=== PATIENT | male | born 1950 | race Caucasian/White ===

== ENCOUNTER → 2020-04-27 | Outpatient (CLI) | payer OTHER | LOC: SJCVC 15:47 | PROVIDERS: ATTEND Internal Medicine Cardiovascular Disease | DX: R94.31 Abnormal electrocardiogram [ECG] [EKG] (principal); I11.9 Hypertensive heart disease without heart failure; E78.00 Pure hypercholesterolemia, unspecified; J44.9 Chronic obstructive pulmonary disease, unspecified; Z82.49 Family history of ischemic heart disease and other diseases of the circulatory system; Z87.891 Personal history of nicotine dependence; Z79.899 Other long term (current) drug therapy ==

== ENCOUNTER → 2020-05-02 | Outpatient (CLI) | payer OTHER | LOC: SJCVCIMAG 10:50 | PROVIDERS: ATTEND Internal Medicine Cardiovascular Disease | DX: I11.9 Hypertensive heart disease without heart failure (principal); I27.20 Pulmonary hypertension, unspecified; I49.3 Ventricular premature depolarization; J44.9 Chronic obstructive pulmonary disease, unspecified; E78.5 Hyperlipidemia, unspecified; Z79.899 Other long term (current) drug therapy; Z87.891 Personal history of nicotine dependence ==

== ENCOUNTER → 2020-05-25 | Outpatient (CLI) | payer OTHER | LOC: SJCVC 15:35 | PROVIDERS: ATTEND Internal Medicine Cardiovascular Disease | DX: I11.9 Hypertensive heart disease without heart failure (principal); R94.31 Abnormal electrocardiogram [ECG] [EKG]; E78.00 Pure hypercholesterolemia, unspecified; R60.9 Edema, unspecified; J44.9 Chronic obstructive pulmonary disease, unspecified; Z82.49 Family history of ischemic heart disease and other diseases of the circulatory system; Z79.899 Other long term (current) drug therapy; Z87.891 Personal history of nicotine dependence ==

== ENCOUNTER → 2020-06-16 | Outpatient (CLI) | payer OTHER | LOC: SJCVCIMAG 11:21 | PROVIDERS: ATTEND Internal Medicine Cardiovascular Disease | DX: R94.31 Abnormal electrocardiogram [ECG] [EKG] (principal); I11.9 Hypertensive heart disease without heart failure; M79.604 Pain in right leg; M79.605 Pain in left leg; M79.89 Other specified soft tissue disorders; J44.9 Chronic obstructive pulmonary disease, unspecified; C91.10 Chronic lymphocytic leukemia of B-cell type not having achieved remission; R53.83 Other fatigue; Z79.899 Other long term (current) drug therapy; Z87.891 Personal history of nicotine dependence ==

== ENCOUNTER 2020-07-22 09:55 | Inpatient (IN) | payer OTHER ==
[~2020-07-22] VITALS: Ht 172.7 cm; Wt 86.5 kg
--- NOTE | ~2020-07-22 | EMS ---
[address] [address] EMS Patient Care Report Name: IGNACIO NIELSEN Room #: 212-P ADM IN M.R.#: [id number] Admission: 07/23/20 Attend Phys: Andreina House MD Discharge: Date of : 50 Report #: [id number] THIS REPORT FOR: //name// Report Transmitted: 07/25/2020 09:33 EMS Care Summary [facility] Incident [id number] @ 07/22/2020 08:55 Incident Location [address] [place] [address] Patient IGNACIO NIELSEN Male, 69 Years 1950 Patient Address [address] [place] [address] Patient History Chronic Obstructive Pulmonary Disease (COPD),Hypertension (HTN), Patient Allergies No known allergies, Patient Medications Lisinopril, Anoro, Chief Complaint Swelling in legs Disposition Transported No Lights/[place] Dispatch Reason Breathing Problem Transported To [facility] Narrative Called for soda. Arrived to find one male pt alert to person place time and event, sitting in recliner. Pt reported soa on exertion that was worse for the last month, making it difficult to get to the bathroom. Pt also had edema in his legs no pitting for the same time period. Lung sounds clear. Pt transported [address] [address] EMS Patient Care Report Name: IGNACIO NIELSEN Room #: 212-P ADM [facility]#: [id number] Admission: 07/23/20 Attend Phys: Andreina House MD Discharge: Date of : 50 Report #: [id number] to [facility] per his request radio report en route. Vitals wnl nfp, no change in pt condition en route. Pt moved to hospital bed by ems, report to staff at bedside. Initial Vitals @09:21P: 93,BP: 122/75,SpO2: 81, @09:50P: 88,BP: 118/73,SpO2: 89, @09:05P: 95,BP: 113/79,GCS: 15,SpO2: 78, Impression Shortness of breath Timeline 08:52,Call Received 08:52,Psap Call 08:55,Dispatched 08:56,En Route 09:01,On Scene 09:02,At Patient 09:05,BP: 113/79 M,PULSE: 95,RR: R,SPO2: 78 Ox,ETCO2: ,BG: ,PAIN: ,GCS: 15, 09:21,BP: 122/75 M,PULSE: 93,RR: R,SPO2: 81 Ox,ETCO2: ,BG: ,PAIN: ,GCS: , 09:22,Depart Scene 09:50,BP: 118/73 M,PULSE: 88,RR: R,SPO2: 89 Ox,ETCO2: ,BG: ,PAIN: ,GCS: , 09:50,At Destination 10:20,Transfer Patient 10:47,Call Closed Disclaimer v1.1 Copyright 2020 [employer] This EMS Care Summary contains data elements from the applicable legal record (which may be displayed differently). It is designed to provide pertinent information for the following purposes: continuity of care, clinical quality, and state data reporting. The complete legal record is available to ED staff and administrators of the receiving hospital in [facility]'s Patient Tracker. All data is provided "as is."
[2020-07-22 09:55] VITALS: BP 114/78
[2020-07-22] MEDS ORDERED: LISINOPRIL10 MG PO (09:58)
[2020-07-22] MEDS ORDERED: ANORO ELLIPTA1 EACH (09:58)
[2020-07-22 10:15] LABS: HEMOGLOBIN 15.2 gm/dL (14.0-18.0)
[2020-07-22 10:17] LABS: HEMATOCRIT 51.8 % (42.0-52.0); MCH 22.4 pg (26.0-34.0); MCHC 29.4 g/dL (28.0-37.0); MCV 76.2 fL (80.0-100.0); PLATELET COUNT 302 thou/uL (150-400); RBC 6.79 mil/uL (4.50-6.00); RDW 20.2 % (10.5-14.5); WBC 39.5 thou/uL (4.0-11.0)
[2020-07-22 10:26] LABS: ANION GAP 3 mmol/L (7-16); BUN 32 mg/dL (7-18); CALCIUM 8.4 mg/dL (8.5-10.1); CHLORIDE 106 mmol/L (98-107); CO2 34 mmol/L (21-32); CREATININE 1.2 mg/dL (0.7-1.3); GLUCOSE 111 mg/dL (74-106); POTASSIUM 5.5 mmol/L (3.5-5.1); SODIUM 143 mmol/L (136-145)
[2020-07-22 10:33] LABS: TROPONIN-I <0.06 ng/mL (<0.06)
[2020-07-22 10:48] LABS: ABSOLUTE NEUTROPHILS 5.5 thou/uL (1.4-8.2); ANISOCYTOSIS 1+; ATYPICAL LYMPHS 76 %; NUCLEATED RBCS 1 /100WBC; PLATELET ESTIMATE NORMAL; POLYCHROMASIA SLIGHT
[2020-07-22 18:18] LABS: ANION GAP 4 mmol/L (7-16); BUN 30 mg/dL (7-18); CALCIUM 8.1 mg/dL (8.5-10.1); CHLORIDE 106 mmol/L (98-107); CO2 37 mmol/L (21-32); CREATININE 1.3 mg/dL (0.7-1.3); GLUCOSE 89 mg/dL (74-106); POTASSIUM 5.2 mmol/L (3.5-5.1); SODIUM 147 mmol/L (136-145)
[2020-07-22 18:28] LABS: TROPONIN-I <0.06 ng/mL (<0.06)
[2020-07-23] VITALS (7 sets, daily range): BP systolic 90–106; BP diastolic 50–64
[2020-07-23 06:36] LABS: URINE BILIRUBIN NEGATIVE (Negative); URINE BLOOD NEGATIVE (Negative); URINE CLARITY CLOUDY; URINE COLOR YELLOW; URINE GLUCOSE-RANDOM* NEGATIVE (Negative); URINE KETONES NEGATIVE (Negative); URINE LEUKOCYTES NEGATIVE (Negative); URINE NITRITE NEGATIVE (Negative); URINE PROTEIN (DIPSTICK) NEGATIVE (Negative); URINE UROBILINOGEN 0.2 E.U./dl (0.2-1.0)
[2020-07-23 08:51] LABS: HEMATOCRIT 52.5 % (42.0-52.0); HEMOGLOBIN 15.4 gm/dL (14.0-18.0); MCH 22.3 pg (26.0-34.0); MCHC 29.3 g/dL (28.0-37.0); PLATELET COUNT 298 thou/uL (150-400); RBC 6.91 mil/uL (4.50-6.00); RDW 20.4 % (10.5-14.5)
[2020-07-23 08:57] LABS: WBC 23.1 thou/uL (4.0-11.0)
[2020-07-23 09:08] LABS: ANION GAP 4 mmol/L (7-16); BUN 27 mg/dL (7-18); CHLORIDE 104 mmol/L (98-107); CO2 34 mmol/L (21-32); CREATININE 1.2 mg/dL (0.7-1.3); GLUCOSE 158 mg/dL (74-106); POTASSIUM 4.8 mmol/L (3.5-5.1); SODIUM 142 mmol/L (136-145); TROPONIN-I <0.06 ng/mL (<0.06)
[2020-07-23 09:12] LABS: ABSOLUTE NEUTROPHILS 3.7 thou/uL (1.4-8.2); ANISOCYTOSIS 2+; ATYPICAL LYMPHS 23 %; PLATELET ESTIMATE NORMAL; POLYCHROMASIA SLIGHT
[2020-07-23 09:18] LABS: ALBUMIN 3.5 g/dL (3.4-5.0); CALCIUM 8.7 mg/dL (8.5-10.1); CREATININE 1.3 mg/dL (0.7-1.3); POTASSIUM 4.6 mmol/L (3.5-5.1); TOTAL BILIRUBIN 0.7 mg/dL (0.2-1.0); TOTAL PROTEIN 6.2 g/dL (6.4-8.2)
--- NOTE | 2020-07-23 11:30 | NUR ---
PT ADMITTED TO ROOM 212, COVID NEGATIVE, C/O INCREASING SOA, LE EDEMA 3+, NO C/O PAIN, VSS, O2 AT 4L/NC DESATS EASILY WITH ACTIVITY, VOIDING PER URINAL. RECEIVED VERY LITTLE SLEEP AFTER ADMISSION FINISHED, IV INFUSING IN R AC, TOLLERATED AM MEAL TRAY, IV ANTIBIOTICS STARTED AND SECOND BAG OF FLUIDS, REPORT GIVEN TO NEXT SHIFT TO CON'T WITH PPOC.
--- NOTE | 2020-07-23 18:35 | NUR ---
ASSUMED CARE AT CHANGE OF SHIFT. PT ALERTX4, FROM HOME. 4L NASAL CANNULA, VOICED TO CARDIOLOGY HE HAS FELT AN INCREASE OF SOA OVER THE WEEK. BILAT LE EDEMA THAT ARE WRAPPED WITH CASSI WRAPS PER DR KEE. AB TOVA WITH BATHROOM PRIVLEDGES. DENIES PAIN. SCHEDULED MEDS GIVEN PER ORDERS. CALLS FOR ASSISTANCE.
[2020-07-24 03:54] LABS: MCV 74.5 fL (80.0-100.0)
[2020-07-24 03:56] LABS: HEMATOCRIT 45.6 % (42.0-52.0); HEMOGLOBIN 13.4 gm/dL (14.0-18.0); MCH 21.8 pg (26.0-34.0); MCHC 29.3 g/dL (28.0-37.0); PLATELET COUNT 285 thou/uL (150-400); RBC 6.12 mil/uL (4.50-6.00); RDW 20.1 % (10.5-14.5); WBC 26.1 thou/uL (4.0-11.0)
--- NOTE | 2020-07-24 05:30 | NUR ---
ASSUMED CARE OF THE PATIENT AT 1900; AOX4/UP AD TOVA TO TOILET; 4L N/C WITH O2 SATs 94-PERCENT AND ABOVE; NO C/O OF PAIN; SR ON THE MONITOR/ HR 60-80s; EDUCATED ON 1500 ML FLUID RESTRICTION AND DIET; CASSI WRAPS IN PLACE TO BL LE WITH EDEMA; PLAN IS FOR PATIENT TO D/C TO HOME TODAY OR TOMORROW; WILL CONTINUE TO MONITOR.
[2020-07-24 05:38] VITALS: BP 92/51
[2020-07-24 07:38] LABS: ABSOLUTE NEUTROPHILS 7.3 thou/uL (1.4-8.2); ATYPICAL LYMPHS 6 %; NUCLEATED RBCS 1 /100WBC
[2020-07-24 07:39] LABS: ANISOCYTOSIS 2+; HYPOCHROMASIA 2+
[2020-07-24 08:00] VITALS: BP 108/60
[2020-07-24 09:05] LABS: ANION GAP 10 mmol/L (7-16); BUN 27 mg/dL (7-18); CALCIUM 8.6 mg/dL (8.5-10.1); CHLORIDE 104 mmol/L (98-107); CO2 32 mmol/L (21-32); CREATININE 1.3 mg/dL (0.7-1.3); GLUCOSE 130 mg/dL (74-106); POTASSIUM 4.2 mmol/L (3.5-5.1); SODIUM 146 mmol/L (136-145)
[2020-07-24 09:07] LABS: APTT 26.8 Seconds (24.5-32.8); INR 1.1; PROTIME 11.5 Seconds (9.3-11.4)
[2020-07-24 09:14] LABS: TROPONIN-I <0.06 ng/mL (<0.06)
--- NOTE | 2020-07-24 10:37 | 2DMMODE ---
[facility] [place] [address] [place] [address] 2 D/M-MODE ECHOCARDIOGRAM Name: IGNACIO NIELSEN Room #: 212-P ADM IN M.R.#: [id number] Admission: 07/23/20 Attend Phys: Andreina House MD Discharge: Date of : 50 Report #: [id number] THIS REPORT FOR: cc: Thomas Pantoja Louis D. DO Santiago, Patrick MD [facility] ~ APPROVED REPORT Study performed: 07/24/2020 09:39:37 EXAM: Comprehensive 2D, Doppler, and color-flow Echocardiogram Patient Location: Bedside Room #: 212 Status: routine BSA: 1.98 HR: 86 bpm BP: 108/60 mmHg Rhythm: NSR Other Information Study Quality: Adequate Indications Congestive Heart Failure COPD Dyspnea Edema 2D Dimensions RVDd: 48.26 mm IVSd: 10.12 (7-11mm) LVOT Diam: 21.19 (18-24mm) LVDd: 46.01 mm PWd: 8.56 (7-11mm) Ascending Ao: 30.91 (22-36mm) LVDs: 28.13 (25-40mm) Aortic Root: 32.36 mm IVC: 28.00 mm Volumes Left Atrial Volume (Systole) Single Plane 4CH: 65.38 mL Single Plane 2CH: 66.55 mL LA ESV Index: 39.00 mL/m2 Aortic Valve AoV Peak Shreyas.: 1.46 m/s AO Peak Gr.: 8.57 mmHg LVOT Max P.57 mmHg [facility] [address] [place] [address] 2 D/M-MODE ECHOCARDIOGRAM Name: SABINESTACEYIGNACIO Room #: 212-P [facility] IN ..#: [id number] Admission: 07/23/20 Attend Phys: Andreina House, Discharge: Date of : 50 Report #: [id number] LVOT Max V: 1.18 m/s ANDRES Vmax: 2.84 cm2 Mitral Valve E/A Ratio: 1.2 MV Decel. Time: 163.65 ms MV E Max Shreyas.: 1.01 m/s MV A Shreyas.: 0.84 m/s MV PHT: 47.46 ms IVRT: 73.82 ms Pulmonary Valve PV Peak Shreyas.: 0.93 m/s PV Peak Gr.: 3.47 mmHg Pulmonary Vein P Vein S: 0.48 m/s P Vein A: 0.39 m/s P Vein D: 0.52 m/s P Vein A Dur.: 92.3 msec P Vein S/D Ratio: 0.92 Tricuspid Valve TR Peak Shreyas.: 2.83 m/s TR Peak Gr.: 32.12 mmHg PA Pressure: 42.00 mmHg Left Ventricle The left ventricle is normal size. There is normal LV segmental wall motion. There is normal left ventricular wall thickness. The left ventricular systolic function is normal. The left ventricular ejection fraction is within the normal range. LVEF is 55-60%. The left ventricular diastolic function is abnormal. Right Ventricle Right ventricle is moderately dilated. The right ventricular systolic function is normal. Atria Left atrium is dilated. Right atrium is dilated. Aortic Valve The aortic valve is normal in structure. No aortic regurgitation is present. There is no aortic valvular stenosis. Mitral Valve The mitral valve is normal in structure. Mild mitral regurgitation. No evidence of mitral valve stenosis. [facility] [place] [address] 2 D/M-MODE ECHOCARDIOGRAM Name: IGNACIO NIELSEN Yosi Room #: 212-P [facility] IN .R.#: [id number] Admission: 07/23/20 Attend Phys: Andreina House, Discharge: Date of : 50 Report #: [id number] Tricuspid Valve The tricuspid valve is normal in structure. There is trace tricuspid regurgitation. Estimated PAP 42 mmHg. There is moderate pulmonary hypertension. Pulmonic Valve The pulmonary valve is normal in structure. There is no pulmonic valvular regurgitation. Great Vessels The aortic root is normal in size. IVC is dilated and collapses <50% with inspiration. Pericardium There is no pericardial effusion. Pleural effusion is seen. <Conclusion> Normal left ventricle size/wall thickness Ejection fraction 60% Moderately dilated RV with normal systolic function Mild biatrial enlargement Normal aortic valve structure/function Mild mitral valve insufficiency Trace tricuspid valve insufficiency Pulmonary artery systolic pressure estimated 42 mmHg No pericardial effusion <ELECTRONICALLY SIGNED> By: Mani Bass MD, FACC 07/24/201035 35 35 Mani Bass MD, FACC /INF
[2020-07-24 12:04] LABS: CLARITY CLOUDY; COLOR DARK YELLOW; SOURCE RIGHT CHEST; TOTAL VOLUME 55 mL
[2020-07-24 13:32] LABS: BF NUCLEATED CELLS 4511 /mm3; BF RBC 6612 /mm3
[2020-07-24 14:44] LABS: BF MACROPHAGE 38 %; BF NEUTROPHILS 1 %
[2020-07-24 17:30] VITALS: BP 105/73
--- NOTE | 2020-07-24 20:17 | NUR ---
PT ALERT AND ORIENTED X4. ECHO AND US GUIDED THORACENTESIS DONE THIS AM. 500ML DRAINED AND SENT FOR ORDERED LABS. CHEST XRAY DONE FOLLOWING THORACENTESIS. PT'S AT BEDSIDE AND UPDATED. PT REQUESTING SLEEPING PILL TONIGHT. DR PONCE NOTIFIED. REPORT GIVEN TO SUPERVISOR DEHYDROGENATION RN.
[2020-07-24 20:30] VITALS: BP 104/64
[2020-07-25 05:03] LABS: CALCIUM 8.2 mg/dL (8.5-10.1); CREATININE 1.3 mg/dL (0.7-1.3); POTASSIUM 4.8 mmol/L (3.5-5.1)
[2020-07-25 05:05] LABS: HEMATOCRIT 44.1 % (42.0-52.0); HEMOGLOBIN 13.1 gm/dL (14.0-18.0); MCH 22.3 pg (26.0-34.0); MCHC 29.8 g/dL (28.0-37.0); MCV 74.9 fL (80.0-100.0); RBC 5.88 mil/uL (4.50-6.00); RDW 20.3 % (10.5-14.5); WBC 25.1 thou/uL (4.0-11.0)
[2020-07-25 05:19] VITALS: BP 100/63
--- NOTE | 2020-07-25 05:59 | NUR ---
ASSUMED CARE OF THE PATIENT AT 1900; AOX4; SR ON THE MONITOR WITH HR 60-80s; 4L N/C AND TOLERATING WELL; C/O OF PAIN AND SLEEPLESSNESS MANAGED WITH SOME SUCCESS; PLAN IS FOR PATIENT TO REMAIN FOR OBSERVATION AND CONSULT WITH HEM-ONC; WILL CONTINUE TO MONITOR.
[2020-07-25 09:51] VITALS: BP 106/58
[2020-07-25 12:42] VITALS: BP 94/58
[2020-07-25 16:41] VITALS: BP 104/67
[2020-07-25 19:42] VITALS: BP 99/54
[2020-07-26 04:22] VITALS: BP 111/66
[2020-07-26 06:12] LABS: HEMOGLOBIN 13.6 gm/dL (14.0-18.0); MCH 22.1 pg (26.0-34.0); MCHC 29.5 g/dL (28.0-37.0); MCV 74.9 fL (80.0-100.0); RBC 6.15 mil/uL (4.50-6.00); RDW 20.3 % (10.5-14.5)
[2020-07-26 06:51] LABS: CALCIUM 8.1 mg/dL (8.5-10.1); CREATININE 1.3 mg/dL (0.7-1.3)
--- NOTE | 2020-07-26 07:48 | NUR ---
PATIENT CARES WERE ASSUMED AT SHIFT CHANGE. PATIENT WAS ASSESSED AND MEDS WERE PASSED. PATIENT REQUESTED PAIN MEDS AND MEDS TO SLEEP ABOUTT 2215. PATIENT DID SLEEP THE MAJORITY OF THIS SHIFT. THE SHIFT WAS UNEVENTFUL FOR THIS PATIENT. THE BED WAS IN A LOW AND LOCKED POSITION.
[2020-07-26 07:57] VITALS: BP 114/55
[2020-07-26 09:08] LABS: HAV IgM AB (ANTI-HAV IgM) Negative (Negative); HEPATITIS B SURFACE AG Negative (Negative); HEPATITIS C VIRUS AB <0.1 (0.0-0.9)
[2020-07-26 11:01] VITALS: BP 106/74
--- NOTE | 2020-07-26 12:06 | HC ---
[facility] [place] [address] [place] [address] CONSULTATION Name: IGNACIO NIELSEN Room #: 212-P ADM IN M.R.#: [id number] Admission: 07/23/20 Attend Phys: Andreina House MD Discharge: Date of : 50 Report #: [id number] THIS REPORT FOR: cc: Thomas Pantoja Louis D. DO Barry, Joseph W. MD ~ DATE OF SERVICE: 07/25/2020 INFECTIOUS DISEASE CONSULTATION ATTENDING PHYSICIAN: Dr. House. REASON FOR EVALUATION: Question empyema. HISTORY OF SUBJECTIVE: Chart reviewed, the patient examined. This is a 69-year-old gentleman with chronic lymphocytic leukemia also apparently has underlying COPD been initiated on supplemental oxygen, although this has not been a chronic issue. He presented with complaints of progressive lower extremity swelling and weight gain with worsening dyspnea over the course of the last 6-8 weeks. Initial chest x-ray raised question of widespread bilateral non-consolidative infiltrates suggesting of pulmonary edema versus atypical infection. COVID testing was negative, underwent a CT showed moderate right pleural effusion and underwent thoracentesis. The fluid was evaluated and was found to have 4500 white cells, predominantly lymphocytes and macrophages only 1% neutrophils. On questioning, he denies any recent fevers or chills. Appetite has been somewhat diminished, although recently has improved. He did undergo diuresis and states he feels significantly better. He is empirically placed on ceftriaxone and azithromycin. Cultures in progress. ALLERGIES: STATINS. CURRENT MEDICATIONS: Include torsemide, hydrocodone, melatonin, methylprednisolone, aspirin, azithromycin, ceftriaxone, guaifenesin, famotidine, budesonide, ipratropium and albuterol inhaler, carvedilol, enoxaparin, nitroglycerin. PAST MEDICAL HISTORY: As described above, chronic lymphocytic leukemia, currently stable; COPD with borderline oxygen dependency, hypertension, previous tonsillectomy. SOCIAL HISTORY: Former smoker, occasional ethanol, no illicit drug use. FAMILY HISTORY: Noncontributory. REVIEW OF SYSTEMS: Otherwise, unremarkable 10-point review of systems. [address] [address] CONSULTATION Name: IGNACIO NIELSEN Room #: 212-P [facility] IN M.R.#: [id number] Admission: 07/23/20 Attend Phys: Andreina House MD Discharge: Date of : 50 Report #: [id number] PHYSICAL EXAMINATION: GENERAL: He is alert, cooperative, appropriate, some mild distress. Does have appears to be somewhat chronically ill and undernourished. VITAL SIGNS: Temperature 97, pulse 78, respirations 18, blood pressure 106/58. SKIN: Warm, dry, no rashes. HEENT: Normocephalic. Extraocular muscles intact. Does have nasal cannula in place. NECK: Supple. LUNGS: Diminished breath sounds. Few scattered crackles throughout. HEART: Regular. I do not appreciate a murmur. ABDOMEN: Mildly distended, soft, nontender. EXTREMITIES: Mild edema. GENITOURINARY AND RECTAL: Deferred. LABORATORY DATA: Pleural fluid culture was sterile thus far. Electrolytes: Sodium 143, potassium 4.8, chloride 105, bicarbonate is 34, anion gap of 4, BUN and creatinine 35/1.3, glucose of 128. CBC: White count 25.1, H and H 13.1 and 44.1, platelets of 269. Previous CBC showed predominance of lymphocytes. Sed rate of 4. Body fluid described as dark yellow, cloudy, 6600 red cells, 4500 white cells, 1 neutrophil, 60 lymphocytes, 38 macrophages. Imaging as noted above. Blood cultures sterile thus far. MRSA PCR was negative. Urinary antigen for Streptococcus and legionella were presumptive negative as well. Urinalysis unremarkable. ASSESSMENT: 1. Pleural fluid in the setting of underlying chronic obstructive pulmonary disease with hypoxemia. 2. Chronic lymphocytic leukemia. PLAN: We will plan to continue empiric therapy with antimicrobials at this point. I think the overall evidence would favor against an empyema, given the significant improvement, the lack of systemic illness in terms of fevers, chills. Given the fact that his predominant lymphocytes in the setting of chronic lymphocytic leukemia was suggestive of parapneumonic process. He remains somewhat tenuous. We will add incentive spirometry, increase his activity, optimize her nutritional status. <ELECTRONICALLY SIGNED> By: Shashank Cruz MD 07/26/20 1206 1151 1255 Shashank Cruz MD /nt
--- NOTE | 2020-07-26 13:01 | NUR ---
Met with patient who admits with CHF. Patient resides with in independent home. Independent with adls ship captain. Patient reports PCP Dr Longoria. Patient to dc home today. Patient not interested in home health care. he reports he can f/u with his phys outpatient. patient reports his phus office did arrange for home oxygen. He has only rec a few days. From [employer]. Plan to update oxygen company with sat/excercise. Patient usu on 3 liters at home. Plan home independently.
[2020-07-26] MEDS ORDERED: ADULT LOW DOSE81 MG PO (14:11)
[2020-07-26] MEDS ORDERED: CEFDINIR300 MG PO (14:11)
[2020-07-26] MEDS ORDERED: COREG6.25 MG PO (14:11)
[2020-07-26] MEDS ORDERED: TORSEMIDE20 MG PO (14:12)
[2020-07-26] MEDS ORDERED: PREDNISONE 10 M10 M1 PO (14:12)
[2020-07-26 14:37] VITALS: BP 106/74
--- NOTE | 2020-07-26 15:24 | NUR ---
ASSUMED CARE AT SHIFT CHANGE, ASSESSMENT DOCUMENTED, VSS AND AFEBRILE. BLE RWRAPPED WITH CASSI BANDS, AND DISCHARGE AND MEDICATION INSTRUCTIONS GIVEN. PATIENT DISCHARGED HOME.
[2020-07-26 17:38] VITALS: BP 106/74
[2020-07-28 10:38] LABS: SOURCE THORACENTESIS
== END 2020-07-26 15:26 | disposition home or self-care (01) | DRG 871 ==
LOC: ER 09:55 → EROBS 07-23 01:10 → 2N 07-23 01:10
PROVIDERS: Emergency Medicine; Hospitalist; Nurse Practitioner Adult Health; Specialist; ADMIT Internal Medicine; ATTEND Internal Medicine
PROC: 0W993ZZ Drainage of Right Pleural Cavity, Percutaneous Approach (ICD-10-PCS; principal; 2020-07-24)
DX: A41.9 Sepsis, unspecified organism (principal); I50.33 Acute on chronic diastolic (congestive) heart failure; J18.9 Pneumonia, unspecified organism; J44.1 Chronic obstructive pulmonary disease with (acute) exacerbation; E87.0 Hyperosmolality and hypernatremia; C91.10 Chronic lymphocytic leukemia of B-cell type not having achieved remission; J91.8 Pleural effusion in other conditions classified elsewhere; J44.0 Chronic obstructive pulmonary disease with (acute) lower respiratory infection; E87.5 Hyperkalemia; I27.20 Pulmonary hypertension, unspecified; G47.00 Insomnia, unspecified; I11.0 Hypertensive heart disease with heart failure; Z20.828 Contact with and (suspected) exposure to other viral communicable diseases; Z88.8 Allergy status to other drugs, medicaments and biological substances; Z87.891 Personal history of nicotine dependence; Z79.899 Other long term (current) drug therapy; Z79.82 Long term (current) use of aspirin; Z23 Encounter for immunization
CPT/HCPCS: 10081

== ENCOUNTER → 2020-08-09 | Outpatient (CLI) | payer OTHER ==
[~2020-08-09] MED LIST: ADULT LOW DOSE81 MG PO; ANORO ELLIPTA1 EACH; CEFDINIR300 MG PO; COREG6.25 MG PO; LISINOPRIL10 MG PO; PREDNISONE 10 M10 M1 PO; TORSEMIDE20 MG PO
== END ==
LOC: SJCVC 14:02
PROVIDERS: ATTEND Internal Medicine Cardiovascular Disease
DX: R94.31 Abnormal electrocardiogram [ECG] [EKG] (principal); I11.0 Hypertensive heart disease with heart failure; I50.32 Chronic diastolic (congestive) heart failure; I27.20 Pulmonary hypertension, unspecified; J44.9 Chronic obstructive pulmonary disease, unspecified; C91.10 Chronic lymphocytic leukemia of B-cell type not having achieved remission; E78.00 Pure hypercholesterolemia, unspecified; Z79.82 Long term (current) use of aspirin; Z79.899 Other long term (current) drug therapy; Z87.891 Personal history of nicotine dependence

== ENCOUNTER → 2020-11-07 | Outpatient (CLI) | payer OTHER | LOC: SJCVC 10:51 | PROVIDERS: ATTEND Internal Medicine Cardiovascular Disease | DX: R94.31 Abnormal electrocardiogram [ECG] [EKG] (principal); I11.0 Hypertensive heart disease with heart failure; I50.32 Chronic diastolic (congestive) heart failure; I27.20 Pulmonary hypertension, unspecified; E78.00 Pure hypercholesterolemia, unspecified; R60.9 Edema, unspecified; C91.10 Chronic lymphocytic leukemia of B-cell type not having achieved remission; E78.5 Hyperlipidemia, unspecified; J44.9 Chronic obstructive pulmonary disease, unspecified; Z79.82 Long term (current) use of aspirin; Z79.899 Other long term (current) drug therapy; Z87.891 Personal history of nicotine dependence; Z72.89 Other problems related to lifestyle; Z88.8 Allergy status to other drugs, medicaments and biological substances ==

== ENCOUNTER → 2020-12-08 | Outpatient (CLI) | payer OTHER ==
[~2020-12-08] MED LIST changes: +CARVEDILOL6.25 M1 PO; +DEMADEX20 MG PO; +LO-DOSE ASPIRIN81 M1 PO
== END ==
LOC: LAB 09:00
PROVIDERS: ATTEND Specialist
DX: Z01.812 Encounter for preprocedural laboratory examination (principal); Z20.822 Contact with and (suspected) exposure to COVID-19

== ENCOUNTER → 2020-12-13 | Outpatient (CLI) | payer OTHER ==
[~2020-12-13] VITALS: Ht 172.7 cm; Wt 78.5 kg
--- NOTE | ~2020-12-13 | P ---
[facility] [place] [address] [address] PROCEDURE REPORT Name: IGNACIO NIELSEN Room #: REG [facility].#: [id number] Admission: 12/13/20 Attend Phys: Miguel Milligan Discharge: Date of : 50 Report #: [id number] THIS REPORT FOR: cc: Thomas Pantoja Louis D. DO McElhinney, Christian C. MD ~ DOC #: [id number] cc: DO Miguel Montana MD DATE OF SERVICE: 12/13/2020 PROCEDURE PERFORMED: Colonoscopy with polypectomy. HISTORY OF PRESENT ILLNESS: The patient is a 70-year-old male who was seen in the office by myself on 11/09/2020. Last colonoscopy was in 2016 in which a polyp was removed and diverticulosis was noted. He does have a family history of colon cancer in his father. Denied any abdominal pain, diarrhea. No signs of bleeding. He underwent a PET scan for history of possible lung nodules. He has a history of COPD and is O2 dependent. The PET scan on 10/19/2020 showed hepatic dome lesion. Recommend possible MRCP for further evaluation. Increased uptake was noted in the sigmoid colon, which may represent inflammatory changes, but need to consider possibility of malignancy. A subtle region of increased activity was also noted in the rectum, consider possibility of malignancy. Plan is therefore colonoscopy today. DESCRIPTION OF PROCEDURE: The risks and benefits of the procedure were explained to the patient, those risks including but not limited to bleeding, perforation and the risk of sedation. He understood these risks and gave informed consent. Sedation was given using propofol per anesthesia. Next, a digital rectal exam showed external hemorrhoids, otherwise normal. Next, using a standard Olympus colonoscope, the scope was placed in the patient's anus and advanced under direct vision into the distal sigmoid colon, at which point it was obvious very tortuous and narrowed in this area. I attempted several times to pass the scope without success. At this point, the scope was then brought back into the patient's rectum, a 5 mm sessile polyp was noted. This was removed by snare cautery. The scope was then withdrawn and a standard Olympus upper endoscope was then placed in the patient's rectum. I was able to advance through the sigmoid colon, although this was very tight and there was significant resistance. I was able to advance the scope into what appears to be the distal ascending colon. It appears the ileocecal valve was seen in the distance, I was unable to advance the scope any further at this point. The visualized portions of the ascending colon were normal. The transverse and descending colon were normal. Again, multiple diverticula were noted in the sigmoid colon and at 30 cm, there was a tight stricture. This appears benign. I did obtain several biopsies in this area. No evidence of acute diverticulitis [address] [address] PROCEDURE REPORT Name: IGNACIO NIELSEN Yosi Room #: TONI Delvalle#: [id number] Admission: 12/13/20 Attend Phys: Miguel Milligan Discharge: Date of : 50 Report #: [id number] was noted. Multiple diverticula were seen. I suspect there was dense scarring due to previous inflammation in the past. No obvious masses were seen as well. The rectal mucosa after polypectomy otherwise was normal. On retroflexion, internal hemorrhoids were noted. At this point, the scope was then withdrawn and the procedure terminated. The patient tolerated the procedure well. IMPRESSION: 1. Multiple diverticula in the sigmoid colon with tight stricture, suspect this is the area that was seen on PET scan showing an abnormality. No obvious mass or malignancy was seen. I did obtain biopsies of the stricture at 30 cm. Suspect this may be scarring due to previous inflammation. 2. Rectal polyp removed. 3. Internal and external hemorrhoids. RECOMMENDATIONS: 1. Await biopsy results. 2. If biopsies are negative, repeat colonoscopy in 5 years. If the patient has significant symptoms of abdominal pain or bloating, could consider a barium enema and may consider even surgical resection of the sigmoid colon. Thank you for allowing me to participate in his care. PROCEDURE PERFORMED: Colonoscopy with polypectomy. HISTORY OF PRESENT ILLNESS: The patient is a 70-year-old male who was seen in the office by myself on 11/09/2020. Last colonoscopy was in 2016 in which a polyp was removed and diverticulosis was noted. He does have a family history of colon cancer in his father. Denied any abdominal pain, diarrhea. No signs of bleeding. He underwent a PET scan for history of possible lung nodules. He has a history of COPD and is O2 dependent. The PET scan on 10/19/2020 showed hepatic dome lesion. Recommend possible MRCP for further evaluation. Increased uptake was noted in the sigmoid colon, which may represent inflammatory changes, but need to consider possibility of malignancy. A subtle region of increased activity was also noted in the rectum, consider possibility of malignancy. Plan is therefore colonoscopy today. DESCRIPTION OF PROCEDURE: The risks and benefits of the procedure were explained to the patient, those risks including but not limited to bleeding, perforation and the risk of sedation. He understood these risks and gave informed consent. Sedation was given using propofol per anesthesia. Next, a digital rectal exam showed external hemorrhoids, otherwise normal. Next, using a standard Olympus colonoscope, the scope was placed in the patient's anus and advanced under direct vision into the distal sigmoid colon, at which point it was obvious very tortuous and narrowed in this area. I attempted several times to pass the scope without success. At this point, the scope was then brought back into the patient's rectum, a 5 mm sessile polyp was noted. This was [facility] [address] [place] [address] PROCEDURE REPORT Name: IGNACIO NIELSEN Room #: REG [facility] Lauren.#: [id number] Admission: 12/13/20 Attend Phys: Miguel Milligan Discharge: Date of : 50 Report #: [id number] removed by snare cautery. The scope was then withdrawn and a standard Olympus upper endoscope was then placed in the patient's rectum. I was able to advance through the sigmoid colon, although this was very tight and there was significant resistance. I was able to advance the scope into what appears to be the distal ascending colon. It appears the ileocecal valve was seen in the distance, I was unable to advance the scope any further at this point. The visualized portions of the ascending colon were normal. The transverse and descending colon were normal. Again, multiple diverticula were noted in the sigmoid colon and at 30 cm, there was a tight stricture. This appears benign. I did obtain several biopsies in this area. No evidence of acute diverticulitis was noted. Multiple diverticula were seen. I suspect there was dense scarring due to previous inflammation in the past. No obvious masses were seen as well. The rectal mucosa after polypectomy otherwise was normal. On retroflexion, internal hemorrhoids were noted. At this point, the scope was then withdrawn and the procedure terminated. The patient tolerated the procedure well. IMPRESSION: 1. Multiple diverticula in the sigmoid colon with tight stricture, suspect this is the area that was seen on PET scan showing an abnormality. No obvious mass or malignancy was seen. I did obtain biopsies of the stricture at 30 cm. Suspect this may be scarring due to previous inflammation. 2. Rectal polyp removed. 3. Internal and external hemorrhoids. RECOMMENDATIONS: 1. Await biopsy results. 2. If biopsies are negative, repeat colonoscopy in 5 years. If the patient has significant symptoms of abdominal pain or bloating, could consider a barium enema and may consider even surgical resection of the sigmoid colon. Thank you for allowing me to participate in his care. Miguel Carroll MD CCM/NICKIE/STACEY By: 0934 38 Miguel Carroll MD /nt
--- NOTE | 2020-12-15 18:06 | PATH ---
[facility] [address] [place] [address] PATHOLOGY RPT PROCEDURE Name: BENJAMIN NIELSEN Room #: REG MANDY Aguilar.#: [id number] Admission: 12/13/20 Date of : 50 Discharge: Report #: [id number] Path Case #: [id number] [facility] Accession Number: [id number] . 01 Material submitted: . PART A: rectum - RECTAL POLYP PART B: sigmoid colon - STRICTURE SIGMOID COLON 30CM. Modifiers: 30CM . 01 Clinical history: . DTS/COLONOSCOPY/HISTORY OF POLYPS/HISTORY OF COLON CANCER . 02 Diagnosis: A. Polyp, rectal polyp, endoscopic biopsy: - Hyperplastic polyp. - Negative for dysplasia. . B. Large intestine mucosa, stricture sigmoid colon 30 cm, endoscopic biopsy: - Reactive mucosa with subtle architectural abnormalities. - Negative for active colitis or cryptitis. - Negative for dysplasia or malignancy. (IUV:merrick; 12/15/2020) QMS 12/15/2020 1403 Local . 02 Electronically signed: . Cyndie Rubio MD, Pathologist NPI- [id number] . 01 Gross description: . A. Received in formalin labeled "Benjamin Nielsen, rectal polyp" is a fragment of subramanian-brown soft tissue measuring 0.4 x 0.3 x 0.2 cm. The specimen is submitted entirely in A1. . B. Received in formalin labeled "Benjamin Nielsen, stricture sigmoid colon 30 cm" are multiple fragments of subramanian-brown soft tissue measuring in aggregate 0.5 x 0.4 x 0.1 cm. The specimen is submitted entirely in B1. [place] 12/14/2020[place] [facility] 12/14/2020 1309 Local . 02 Pathologist provided ICD-10: K62.1, Z12.11, Z86.010, Z87.19 . 02 CPT . 258828, 560545 Specimen Comment: A courtesy copy of this report has been sent to [phone], [phone] Specimen Comment: [phone] [place] [address] PATHOLOGY RPT PROCEDURE Name: BENJAMIN NIELSEN Room #: REG MANDY Delvalle#: [id number] Admission: 12/13/20 Date of : 50 Discharge: Report #: [id number] Path Case #: [id number] Specimen Comment: Report sent to / DR BLANCO Performed at: [address] [facility], [place], [place] [id number] MD Walter Rayo MD Phone: [phone] Performed at: [address] [id number] MD Cyndie Rubio MD Phone: [phone]
== END | disposition home or self-care (01) ==
LOC: GI 08:47
PROVIDERS: ATTEND Specialist
DX: R93.3 Abnormal findings on diagnostic imaging of other parts of digestive tract (principal); K62.1 Rectal polyp; K57.30 Diverticulosis of large intestine without perforation or abscess without bleeding; K56.699 Other intestinal obstruction unspecified as to partial versus complete obstruction; K64.8 Other hemorrhoids; K64.4 Residual hemorrhoidal skin tags; I11.0 Hypertensive heart disease with heart failure; I50.9 Heart failure, unspecified; J43.9 Emphysema, unspecified; C95.10 Chronic leukemia of unspecified cell type not having achieved remission; Z98.890 Other specified postprocedural states; Z79.899 Other long term (current) drug therapy; Z87.891 Personal history of nicotine dependence; Z80.0 Family history of malignant neoplasm of digestive organs; Z20.822 Contact with and (suspected) exposure to COVID-19
CPT/HCPCS: 62110; 62900

== ENCOUNTER → 2021-07-10 | Outpatient (CLI) | payer OTHER | END | disposition home or self-care (01) | LOC: SJCVCIMAG 08:45 | PROVIDERS: ATTEND Internal Medicine Cardiovascular Disease | DX: R94.31 Abnormal electrocardiogram [ECG] [EKG] (principal); C91.10 Chronic lymphocytic leukemia of B-cell type not having achieved remission; J44.9 Chronic obstructive pulmonary disease, unspecified; I27.20 Pulmonary hypertension, unspecified; E78.00 Pure hypercholesterolemia, unspecified; R60.9 Edema, unspecified; I50.32 Chronic diastolic (congestive) heart failure; I11.0 Hypertensive heart disease with heart failure; Z79.82 Long term (current) use of aspirin; Z79.899 Other long term (current) drug therapy; Z98.890 Other specified postprocedural states; Z88.8 Allergy status to other drugs, medicaments and biological substances ==